=== PATIENT | female | born 1960 ===

== ENCOUNTER 2019-05-20 19:03 | Emergency (ER) | payer BC ==
[2019-05-20] MEDS ORDERED: predniSONE TAB* 20 MG PO ONE (19:48)
[2019-05-20] MEDS ORDERED: Amoxicillin PO (*) 500 MG CAP PO ONE (19:49)
[2019-05-20] MEDS ORDERED: Albuterol HFA INHALER* 8 gm MDI INH ONE (19:49)
--- NOTE | 2019-05-20 19:57 | UC ---
Respiratory Complaint HPI - HPI Summary HPI Summary: 58 yo female ill x 11 days no f.c initially nasal congestion now down in chest with wheezing and non productive cough no CP hx of asthma - History of Current Complaint Chief Complaint: UCRespiratory Stated Complaint: RESP COMPLAINT Time Seen by Provider: 05/20/19 19:42 Hx Obtained From: Patient Onset/Duration: Gradual Onset, Lasting Days - 1 Timing: Constant Severity Initially: Mild Severity Currently: Moderate Pain Intensity: 0 Pain Scale Used: 0-10 Numeric Character: Cough: Nonproductive Aggravating Factors: Nothing Alleviating Factors: Nothing Associated Signs And Symptoms: Positive: Wheezing. Negative: Dyspnea, Fever, Chills, Pleuritic Chest Pain, Dizziness, Calf Pain, Calf Swelling, Edema, URI, Nasal Congestion, Hoarseness, Sinus Discomfort - Allergies/Home Medications Allergies/Adverse Reactions: Allergies Allergy/AdvReac Type Severity Reaction Status Date / Time No Known Allergies Allergy Verified 05/20/19 19:34 Home Medications: Home Medications Guaifenesin/Dextromethorphan [Mucinex Dm ER 1,200-60 mg Tab] 1 tab PO BID PRN [History Confirmed 05/20/19] PMH/Surg Hx/FS Hx/Imm Hx Previously Healthy: Yes Respiratory History: Asthma, Bronchitis - Surgical History Surgical History: Yes Surgery Procedure, Year, and Place: bariatric surgery 2015 - Family History Known Family History: Positive: Hypertension - Social History Alcohol Use: Occasionally Substance Use Type: None Smoking Status (MU): Never Smoked Tobacco Review of Systems All Other Systems Reviewed And Are Negative: Yes Constitutional: Positive: Negative Skin: Positive: Negative Eyes: Positive: Negative ENT: Positive: Nasal Discharge, Sinus Congestion Respiratory: Positive: Cough Cardiovascular: Positive: Negative Gastrointestinal: Positive: Negative Genitourinary: Positive: Negative Motor: Positive: Negative Neurovascular: Positive: Negative Musculoskeletal: Positive: Negative Neurological: Positive: Negative Psychological: Positive: Negative Physical Exam Triage Information Reviewed: Yes Appearance: Well-Appearing, No Pain Distress, Well-Nourished Vital Signs: Initial Vital Signs Temp 99 F 05/20/19 19:28 Pulse 71 05/20/19 19:28 Resp 12 05/20/19 19:28 BP 136/81 05/20/19 19:28 Pulse Ox 97 05/20/19 19:28 Vital Signs Reviewed: Yes Eyes: Positive: Conjunctiva Clear ENT: Positive: Nasal congestion. Negative: Hearing grossly normal, Nasal drainage, Trismus, Muffled voice, Hoarse voice Dental Exam: Normal Neck: Positive: Supple, Nontender, No Lymphadenopathy Respiratory: Positive: No respiratory distress, No accessory muscle use, Wheezing Cardiovascular: Positive: RRR, No Murmur, Pulses Normal Musculoskeletal: Positive: ROM Intact, No Edema Neurological: Positive: Alert Psychological Exam: Normal Skin Exam: Normal Respiratory Course/Dx - Differential Dx/Diagnosis Provider Diagnosis: Acute asthmatic bronchitis Discharge - Sign-Out/Discharge Documenting (check all that apply): Patient Departure All imaging exams completed and their final reports reviewed: No Studies - Discharge Plan Condition: Stable Disposition: HOME Prescriptions: Amoxicillin PO (*) [Amoxicillin 500 MG CAP*] 500 mg PO TID #21 cap predniSONE [Deltasone 20 MG TAB] 40 mg PO DAILY #8 tab Patient Education Materials: Acute Bronchitis (ED), How to Use a Metered-Dose Inhaler and a Spacer (ED) Referrals: No Primary Care Phys,NOPCP [Primary Care Provider] - Additional Instructions: recheck here in 4 days if not better - Billing Disposition and Condition Condition: STABLE Disposition: Home
== END 2019-05-20 20:22 | disposition home or self-care (01) ==
LOC: UCEAST 19:03
DX: J45.909 Unspecified asthma, uncomplicated (principal)
CPT/HCPCS: 99203; A9270-GY; G0463; J7512